=== PATIENT | female | born 1990 | race Caucasian/White ===

== ENCOUNTER 2019-08-10 12:43 | Inpatient (IN) ==
[2019-08-10] MEDS ORDERED: DULCOLAX PR PRN (13:15)
[2019-08-10] MEDS ORDERED: DESYREL PO PRN (13:15)
[2019-08-10] MEDS ORDERED: ZOFRAN IM PRN (13:15)
[2019-08-10] MEDS ORDERED: ZOFRAN IV PRN (13:15)
[2019-08-10] MEDS ORDERED: TUBERSOL ID ONE (13:15)
[2019-08-10] MEDS ORDERED: NICOTINE GUM BUCCAL PRN (13:15)
[2019-08-10] MEDS ORDERED: SENOKOT PO PRN (13:15)
[2019-08-10] MEDS ORDERED: PHENOBARBITAL IV PRN (13:15)
[2019-08-10] MEDS ORDERED: MAALOX PLUS LIQUID PO PRN (13:15)
[2019-08-10] MEDS ORDERED: IMODIUM PO PRN ×2 (13:15)
[2019-08-10] MEDS ORDERED: D5W 1,000 ML IV PRN (13:15)
[2019-08-10] MEDS ORDERED: ATARAX PO PRN (13:29)
[2019-08-10] MEDS ORDERED: LIBRIUM PO PRN (13:29)
[2019-08-10 14:01] LABS: HEMATOCRIT 44.8 % (37.0-47.0); HEMOGLOBIN 15.4 g/dL (12.0-16.0); MCH 31.3 PG (27-31); MCHC 34.4 g/dL (33-37); MCV 91.1 FL (81-99); MPV 10.5 FL (7.4-10.4); RBC 4.92 XMIL (4.2-5.4); RDW 12.6 % (11.5-14.5); WBC 8.15 X1000 (4.8-10.8)
[2019-08-10 14:08] LABS: INR 1.1; PROTIME 14.8 Seconds (11.0-16.0)
[2019-08-10] MEDS: LIBRIUM PO SCH ×2 (14:08→19:56)
[2019-08-10 14:09] LABS: AMYLASE 20 U/L (20-200); LIPASE 21 U/L (13-60)
[2019-08-10 14:11] LABS: AGAP 10; ALBUMIN 4.2 g/dL (3.5-5.0); ALKALINE PHOSPHATASE 70 U/L (32-104); BUN 6 mg/dL (8-22); CALCIUM 8.5 mg/dL (8.8-10.2); CHLORIDE 106 mmol/L (98-107); COSMO 283; CREATININE 0.6 mg/dL (0.5-0.9); ESTIMATED GFR > 60; GLUCOSE 100 mg/dL (70-104); GOT 15 U/L (10-30); GPT 9 U/L (10-36); POTASSIUM 3.7 mmol/L (3.5-5.1); SODIUM 143 mmol/L (136-145); TCO2 27 mmol/L (25-35); TOTAL PROTEIN 6.8 g/dL (6.3-8.3)
[2019-08-10 15:39] LABS: URINE SOURCE CLEAN CATCH
[2019-08-10 16:06] LABS: BILIRUBIN URINE NEGATIVE (NEGATIVE); BLOOD URINE NEGATIVE (NEGATIVE); GLUCOSE URINE NEGATIVE (NEGATIVE); KETONE URINE NEGATIVE (NEGATIVE); LEUKOCYTES URINE NEGATIVE (NEGATIVE); NITRITE URINE NEGATIVE (NEGATIVE); PROTEIN URINE NEGATIVE (NEGATIVE); SP GRAVITY URINE 1.005; UR AMPHETAMINES QUAL PRESUMPTIVE POSITIVE (NONE DETECT); UR BARBITUATES QUAL NONE DETECTED (NONE DETECT); UR BENZODIAZEPIN QUAL NONE DETECTED (NONE DETECT); UR CANNABINOIDS QUAL NONE DETECTED (NONE DETECT); UR COCAINE QUAL NONE DETECTED (NONE DETECT); UR METHADONE QUAL NONE DETECTED (NONE DETECT); UR METHAMPHETAMINE QUAL PRESUMPTIVE POSITIVE (NONE DETECT); UR OPIATES QUAL NONE DETECTED (NONE DETECT); UR OXYCODONE QUAL NONE DETECTED (NONE DETECT); UR PCP QUAL NONE DETECTED (NONE DETECT); UR PROPOXYPHENE QUAL NONE DETECTED (NONE DETECT); UR TCA QUAL NONE DETECTED (NONE DETECT); UROBILINOGEN URINE NORMAL
[2019-08-10 16:07] LABS: CLARITY CLEAR (CLEAR); COLOR YELLOW
[2019-08-10] MEDS: ROBAXIN PO PRN (16:36)
[2019-08-10] MEDS: NICODERM PATCH TD PRN (18:24)
[2019-08-10] MEDS: ATARAX PO PRN (18:24)
[2019-08-10] MEDS: ZOFRAN ODT PO PRN (20:33)
[2019-08-10] MEDS: SEROQUEL PO PRN (20:34)
[2019-08-10] MEDS: BENTYL PO PRN (20:34)
[2019-08-10] MEDS: MOTRIN PO PRN (20:34)
[2019-08-10] MEDS: SINEMET 25/100 PO PRN (20:34)
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
[2019-08-11] MEDS: LIBRIUM PO SCH ×6 (00:40→23:14)
[2019-08-11] MEDS: PROTONIX PO SCH (06:04)
[2019-08-11] MEDS: ROBAXIN PO PRN ×2 (09:27→23:15)
[2019-08-11] MEDS: THERA M PLUS PO SCH (09:28)
[2019-08-11] MEDS: VITAMIN B-1 PO SCH (09:28)
[2019-08-11] MEDS: FOLIC ACID PO SCH (09:28)
[2019-08-11] MEDS: SINEMET 25/100 PO PRN (11:33)
[2019-08-11] MEDS: BENTYL PO PRN ×2 (11:33→23:15)
[2019-08-11] MEDS: ATARAX PO PRN (17:36)
[2019-08-11] MEDS: MOTRIN PO PRN (23:15)
[2019-08-11] MEDS: SEROQUEL PO PRN (23:15)
[2019-08-11] MEDS: TORADOL IV PRN (23:38)
[2019-08-12] MEDS: LIBRIUM PO SCH ×4 (05:48→20:37)
[2019-08-12] MEDS: PROTONIX PO SCH (06:07)
--- NOTE | 2019-08-12 08:51 | PROGRESS NOTE ---
DATE: 08/11/2019 SUBJECTIVE: Patient states she still feels terrible. Still has lots of muscle aches. Denies any fevers or chills. PHYSICAL EXAMINATION: Vital Signs: Reviewed. General: She is awake, alert. She is in no distress. HEENT: Normocephalic. Neck: Supple. Cardiovascular: Regular rate. Chest: Clear. Abdomen: Soft. ASSESSMENT: 1. Nausea and vomiting and abdominal pain. 2. Myalgias. 3. Paresthesias. 4. Paroxysmal sweating. 5. Opiate abuse withdrawal and stabilization. PLAN: We will continue high-dose Librium taper. We will increase her Librium currently. We will add Toradol as well. cc: Hernando Simon MD
[2019-08-12] MEDS: ROBAXIN PO PRN ×2 (09:11→20:37)
[2019-08-12] MEDS: THERA M PLUS PO SCH (09:11)
[2019-08-12] MEDS: FOLIC ACID PO SCH (09:11)
[2019-08-12] MEDS: VITAMIN B-1 PO SCH (09:11)
--- NOTE | 2019-08-12 10:37 | PROGRESS NOTE ---
DATE: 08/12/2019 SUBJECTIVE: Patient notes that she is feeling okay, still having muscle aches, occasional tremors, still having restless leg, states that she was very tired yesterday and has not slept in several days, but said she slept very well last night. PHYSICAL EXAMINATION: Vital Signs: Reviewed. Temperature 97.8 degrees, pulse 69, respiratory rate 18, BP 98/55. General: Patient is awake. She is in no respiratory distress. HEENT: Normocephalic. Neck: Supple. Cardiovascular: Regular rate. Chest: Clear. Abdomen: Soft. Extremities: Moves all extremities. Neurologic: No changes. ASSESSMENT: 1. Nausea, vomiting, abdominal pain. 2. Myalgias, paresthesias. 3. Paroxysmal sweating. 4. Opiate abuse withdrawal and stabilization. PLAN: We will continue patient in the hospital. Continue Librium. We will decrease to 25 q.6 today. Continue Toradol as needed. Further orders as needed. cc: Hernando Simon MD
[2019-08-12 12:42] LABS: UR AMPHETAMINES QUAL PRESUMPTIVE POSITIVE (NONE DETECT); UR BARBITUATES QUAL NONE DETECTED (NONE DETECT); UR BENZODIAZEPIN QUAL PRESUMPTIVE POSITIVE (NONE DETECT); UR CANNABINOIDS QUAL NONE DETECTED (NONE DETECT); UR COCAINE QUAL NONE DETECTED (NONE DETECT); UR METHADONE QUAL NONE DETECTED (NONE DETECT); UR METHAMPHETAMINE QUAL PRESUMPTIVE POSITIVE (NONE DETECT); UR OPIATES QUAL NONE DETECTED (NONE DETECT); UR OXYCODONE QUAL NONE DETECTED (NONE DETECT); UR PCP QUAL NONE DETECTED (NONE DETECT); UR PROPOXYPHENE QUAL NONE DETECTED (NONE DETECT); UR TCA QUAL PRESUMPTIVE POSITIVE (NONE DETECT)
[2019-08-12] MEDS: MOTRIN PO PRN ×2 (14:11→23:11)
[2019-08-12] MEDS: ATARAX PO PRN ×2 (14:11→23:11)
[2019-08-12] MEDS: TORADOL IV PRN (20:36)
[2019-08-12] MEDS: SINEMET 25/100 PO PRN (23:11)
[2019-08-12] MEDS: SEROQUEL PO PRN (23:11)
[2019-08-13] MEDS: LIBRIUM PO SCH ×4 (03:30→21:17)
[2019-08-13] MEDS: PROTONIX PO SCH ×2 (06:01→08:30)
[2019-08-13] MEDS: THERA M PLUS PO SCH (08:30)
[2019-08-13] MEDS: FOLIC ACID PO SCH (08:30)
[2019-08-13] MEDS: VITAMIN B-1 PO SCH (08:30)
[2019-08-13] MEDS: ATARAX PO PRN (10:58)
[2019-08-13] MEDS: TYLENOL PO PRN (10:58)
[2019-08-13] MEDS: ROBAXIN PO PRN ×2 (10:58→21:17)
[2019-08-13] MEDS: ZOFRAN ODT PO PRN (10:58)
[2019-08-13] MEDS ORDERED: CATAPRES PO ONE (13:17)
--- NOTE | 2019-08-13 14:14 | PROGRESS NOTE ---
DATE: 08/13/2019 SUBJECTIVE: Patient notes he feels absolutely terrible. She has muscle aches and sweating appears to be worse. She is stressed and depressed. Denies any fever or chills. Denies GI or issues otherwise. PHYSICAL EXAMINATION: Temperature 98 degrees, pulse 86, respiratory rate 18, BP 109/54.General: Patient is awake, currently in no distress. HEENT: Normocephalic. Neck: Supple. Cardiovascular: Regular rate. Chest: Nonlabored. Abdomen: Soft, nondistended. Extremities: Moves all extremities. ASSESSMENT: 1. Nausea vomiting. 2. Abdominal pain. 3. Myalgias and paresthesias. 4. Paroxysmal sweating. 5. Opiate abuse withdrawal and stabilization. 6. Chronic anxiety and depression. PLAN: We will continue patient in the hospital. Continue Librium taper. We will add a dose of Klonopin today to see if it will help with her opiate withdrawal symptoms. Continue Toradol and counseling. Further orders as needed. cc: Hernando Simon MD
[2019-08-13] MEDS ORDERED: LIBRIUM PO SCH (16:00)
[2019-08-13] MEDS: SEROQUEL PO PRN (21:17)
[2019-08-13] MEDS: MOTRIN PO PRN (21:17)
[2019-08-14] MEDS: LIBRIUM PO SCH ×4 (06:29→20:30)
[2019-08-14] MEDS: PROTONIX PO SCH (06:29)
[2019-08-14] MEDS: THERA M PLUS PO SCH (09:44)
[2019-08-14] MEDS: FOLIC ACID PO SCH (09:45)
[2019-08-14] MEDS: ROBAXIN PO PRN ×2 (09:45→17:53)
[2019-08-14] MEDS: VITAMIN B-1 PO SCH (09:45)
[2019-08-14] MEDS: BENTYL PO PRN (11:38)
[2019-08-14] MEDS: TYLENOL PO PRN (11:38)
[2019-08-14] MEDS: ATARAX PO PRN ×2 (11:38→17:53)
--- NOTE | 2019-08-14 19:37 | PROGRESS NOTE ---
DATE: 08/14/2019 SUBJECTIVE: Patient is sleeping, easily awakened, no distress. PHYSICAL: Vital Signs: Reviewed. HEENT: Normocephalic. Neck: Supple. CV: Regular rate. Chest: Clear. Abdomen: Soft. Extremities: Moves all extremities. Neuro: No focal changes. ASSESSMENT: 1. Nausea, vomiting. 2. Abdominal pain. 3. [*]Paresthesias. 4. Paroxysmal sweating. 5. Opiate abuse withdrawal and stabilization. PLAN: Will continue patient on hospital, continue Librium, will attempt to wean. Further orders as needed. cc: Hernando Simon MD
[2019-08-14] MEDS: NICODERM PATCH TD PRN (20:29)
[2019-08-14] MEDS: MOTRIN PO PRN (20:29)
[2019-08-14] MEDS: SINEMET 25/100 PO PRN (20:30)
[2019-08-14] MEDS: SEROQUEL PO PRN (20:30)
[2019-08-15] MEDS: LIBRIUM PO SCH (01:58)
[2019-08-15] MEDS: PROTONIX PO SCH (06:34)
[2019-08-15] MEDS: MOTRIN PO PRN (06:42)
[2019-08-15] MEDS: ATARAX PO PRN (06:42)
[2019-08-15] MEDS: ROBAXIN PO PRN (06:42)
[2019-08-15 07:45] VITALS: BP 120/71
[2019-08-15] MEDS: FOLIC ACID PO SCH (08:40)
[2019-08-15] MEDS: VITAMIN B-1 PO SCH (08:40)
[2019-08-15] MEDS: THERA M PLUS PO SCH (08:40)
[2019-08-15] MEDS ORDERED: REVIA PO ONE (08:47)
[2019-08-15] MEDS ORDERED: LIBRIUM PO SCH (09:00)
[2019-08-15] MEDS: SINEMET 25/100 PO PRN (09:05)
[2019-08-15] MEDS ORDERED: VIVITROL IM ONE (14:00)
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
== END 2019-08-15 13:37 | disposition home or self-care (01) | DRG 897 ==
LOC: P.MEDSURG 12:43
PROVIDERS: ADMIT Family Medicine; ATTEND Family Medicine